=== PATIENT | male | born 1965 | race Caucasian/White ===

== ENCOUNTER 2019-10-15 05:58 | Inpatient (IN) | payer MEDICAID ==
[~2019-10-15] VITALS: Ht 172.7 cm; Wt 93.0 kg
--- NOTE | 2019-10-15 06:01 | NUR ---
[id number] FROM HOME C/O HEADACHE X1 WEEK +NAUSEA. PT TO BED 4, AWAKE, ALERT AAOX4, -SOB, NAD NOTED, -CP, VSS, PENDING ER PROVIDER TOAL
--- NOTE | 2019-10-15 06:21 | NUR ---
PER DR WALKER, PT DOES NOT NEED IV, CALLED LAB FOR BLOOD DRAW
--- NOTE | 2019-10-15 06:43 | NUR ---
PHLEB AT BEDSIDE
[2019-10-15 06:49] LABS: BASOPHILS # (AUTO) 0.1 /CMM (0.0-0.2); BASOPHILS % (AUTO) 0.6 % (0.0-2.0); EOSINOPHILS % (AUTO) 0.2 % (0.0-6.0); HEMATOCRIT 40 % (39-51); HEMOGLOBIN 13.1 g/dL (13.5-17.5); LYMPHOCYTES # (AUTO) 0.5 /CMM (0.8-4.8); LYMPHOCYTES % (AUTO) 2.6 % (20.0-44.0); MEAN CORPUSCULAR HGB CONC 33 g/dl (31.0-36.0); MEAN CORPUSCULAR VOLUME 91 fL (80-96); MONOCYTES # (AUTO) 0.7 /CMM (0.1-1.30); MONOCYTES % (AUTO) 3.3 % (2.0-12.0); NEUTROPHILS # (AUTO) 18.5 /CMM (1.8-8.9); NEUTROPHILS % (AUTO) 93.3 % (43.0-81.0); PLATELET COUNT (AUTO) 306 /CMM (150-450); RED BLOOD CELL COUNT(AUTO) 4.34 MIL/uL (4.5-6.0); WHITE BLOOD COUNT (AUTO) 19.9 K/uL (4.3-11.0)
[2019-10-15 07:12] LABS: ALANINE AMINOTRANSFERASE 19 U/L (12-78); ALBUMIN 2.6 g/dL (3.4-5.0); ALKALINE PHOSPHATASE 92 U/L (46-116); ASPARTATE AMINOTRANSFERASE 17 U/L (15-37); BILIRUBIN,DIRECT 0.1 mg/dL (0.0-0.2); BILIRUBIN,TOTAL 0.3 mg/dL (0.2-1.0); CALCIUM, SERUM 7.9 mg/dL (8.5-10.1); CARBON DIOXIDE 24 mmol/L (21-32); CHLORIDE 101 mmol/L (98-107); CREATININE 1.1 mg/dL (0.6-1.3); GLUCOSE 156 mg/dL (74-106); POTASSIUM 3.3 mmol/L (3.5-5.1); SODIUM SERUM 137 mmol/L (136-145); TOTAL PROTEIN, SERUM 6.4 g/dL (6.4-8.2); UREA NITROGEN, BLOOD 9 mg/dL (7-18)
--- NOTE | 2019-10-15 07:51 | NUR ---
ASSESSED PT ON BED AWAKE AND ALERT, NOT IN RESPIRATORY DISTRESS, V/S STABLE, KEPT RESTED AND COMFORTABLE. WILL CONTINUE TO MONITOR.
--- NOTE | 2019-10-15 07:52 | NUR ---
URINE SPECIMEN COLLECTED AND SENT TO LAB.
[2019-10-15] MEDS ORDERED: IV NS 0.9% 1,000 ML BAG IV ONE (08:00)
[2019-10-15] MEDS ORDERED: HYDROMORPHONE 1 MG/1 ML DISP.SYRIN IV ONE (08:00)
[2019-10-15] MEDS ORDERED: ONDANSETRON HCL/PF 4 MG/2 ML VIAL IVP ONE (08:00)
--- NOTE | 2019-10-15 08:01 | NUR ---
IV LINE ESTABLISHED BLOOD DRAWN AND SENT TO LAB.
[2019-10-15] MEDS ORDERED: HYDROMORPHONE 1 MG/1 ML DISP.SYRIN ONE (08:02)
[2019-10-15] MEDS ORDERED: ONDANSETRON HCL/PF 4 MG/2 ML VIAL ONE (08:02)
--- NOTE | 2019-10-15 08:09 | NUR ---
COVID SWAB OBTAINED AND SENT TO LAB.
[2019-10-15 08:14] LABS: APPEARANCE,URINE Clear (CLEAR); BILIRUBIN,URINE Negative (NEGATIVE); BLOOD, URINE Trace-lysed Ery/uL (NEGATIVE); COLOR,URINE Yellow (YELLOW); KETONES,URINE Negative (NEGATIVE); LEUKOCYTE ESTERASE ,URINE Negative (NEGATIVE); NITRITE, URINE Negative (NEGATIVE); PROTEIN,URINE Negative (NEGATIVE); UGLUCOSE Negative (NEGATIVE)
[2019-10-15 08:18] LABS: BACTERIA,URINE Rare /HPF (None Seen); RBC,URINE 0-2 /HPF (0-2); SQUAMOUS EPITHELIAL CELL,UR Rare /HPF (None Seen); WBC,URINE 0-2 /HPF (0-3)
--- NOTE | 2019-10-15 08:56 | NUR ---
NEGATIVE RAPID COVID TEST PER LAB
--- NOTE | 2019-10-15 09:11 | NUR ---
CALLED PHARMACY FOR IV ANTIBIOTIC.
[2019-10-15] MEDS ORDERED: ATOR40TA PO (09:16)
[2019-10-15] MEDS ORDERED: PANT40TA4 PO (09:16)
[2019-10-15] MEDS ORDERED: VANCOMYCIN 1 GM in IV D5W 250 ML IV ONE (09:30)
[2019-10-15] MEDS ORDERED: PIPERACILLIN /TAZOBACTAM 3.375 G in IV D5W 50 ML IV ONE (09:30)
[2019-10-15] MEDS ORDERED: VANCOMYCIN 1.5 GM in IV D5W 500ml IV ONE (09:30)
--- NOTE | 2019-10-15 09:41 | NUR ---
CALLED HOUSE SUP FOR BED. INFORMED THAT SHE IS WORKING ON IT. AWAITING HER RESPONSE
--- NOTE | 2019-10-15 09:43 | NUR ---
316 BED GIVEN. REPORT TO HARMONY
--- NOTE | 2019-10-15 09:47 | NUR ---
CALLED [facility] FOR REPORT RN NOT AVAILABLE.
--- NOTE | 2019-10-15 09:54 | NUR ---
REPORT GIVEN TO SHAHIDA ANTUNEZ FOR KEVON. WITH ONGOING IV ANTIBIOTIC TRANSFUSING WELL.
--- NOTE | 2019-10-15 10:45 | NUR ---
Patient admitted from ER accompanied by staff with sharron, vital sign stable. Pt c/o august seen by DR. Bradley, received report by Leroy/RN.
[2019-10-15] MEDS ORDERED: ONDANSETRON HCL/PF 4 MG/2 ML VIAL IVP PRN (11:30)
[2019-10-15] MEDS ORDERED: MAGNESIUM HYDROXIDE 30 ML UDC PO PRN (11:30)
[2019-10-15] MEDS ORDERED: ACETAMINOPHEN 325 MG TABLET PO PRN (11:30)
[2019-10-15] MEDS ORDERED: Z GUARD REMEDY 2 OZ OINT TP PRN (11:30)
[2019-10-15] MEDS ORDERED: MAG HYDROX/AL HYDROX/SIMETH 30 ML UDC PO PRN (11:30)
[2019-10-15] MEDS ORDERED: ZOLPIDEM TARTRATE 5 MG TABLET PO PRN (11:30)
[2019-10-15 12:00] VITALS: BP 130/55
[2019-10-15] MEDS: IV NS 0.9% 1,000 ML IV PRN (12:31)
[2019-10-15] MEDS: HYDROCODONE/APAP 5/325MG TABLET PO PRN ×2 (12:43→18:36)
[2019-10-15] MEDS: PIPERACILLIN /TAZOBACTAM 4.5 G in IV D5W 50 ML IV SCH ×2 (14:25→21:22)
[2019-10-15 16:00] VITALS: BP 109/61
--- NOTE | 2019-10-15 18:44 | NUR ---
RN Closing note Patient in bed, c/o headache and given Costa as prn order. Skin is warm to touch, keep clean/dry, patient VTE score is 1 and provided SCD pump on right lower extremity but left lower extremity due to cellulitis, intact IV site running IVF NS at 75 ml/hr. Respiratory even and unlabored on room air, O2sat 96%. Kept bed in locked with elevated HOB for ensure airway, call light within reach, will endorse overnight cashier.
--- NOTE | 2019-10-15 19:26 | NUR ---
MS RN OPENING NOTES PATIENT AWAKE IN BED. A/OX4. ON RA; NO S/S OF ACUTE RESPIRATORY DISTRESS; BREATHING IS EVEN AND UNLABORED. PATIENT C/O HEADACHE; PER DAY SHIFT RN, LIAT PANDA GIVEN AT 1835. IV PRESENT ON RIGHT AC, SIZE 18, INTACT & PATENT WITH NS RUNNING AT 75ML/HR. SAFETY MEASURES IN PLACE AND PATIENT'S NEEDS MET. BED LOCKED, SIDE RAILS X2, CALL LIGHT WITHIN REACH. WILL CONTINUE TO MONITOR.
[2019-10-15 20:00] VITALS: BP 111/56
[2019-10-15 20:32] VITALS: BP 111/56
[2019-10-15] MEDS: VANCOMYCIN 1.25 GM in IV D5W 250 ML IV SCH (22:44)
[2019-10-15] MEDS: ATORVASTATIN 40 MG TABLET PO SCH (22:44)
[2019-10-16] MEDS: PIPERACILLIN /TAZOBACTAM 4.5 G in IV D5W 50 ML IV SCH ×4 (03:21→20:48)
[2019-10-16 06:25] LABS: BASOPHILS % (AUTO) 0.2 % (0.0-2.0); EOSINOPHILS % (AUTO) 0.2 % (0.0-6.0); HEMATOCRIT 36 % (39-51); LYMPHOCYTES # (AUTO) 1.7 /CMM (0.8-4.8); LYMPHOCYTES % (AUTO) 9.4 % (20.0-44.0); MEAN CORPUSCULAR HGB CONC 33 g/dl (31.0-36.0); MEAN CORPUSCULAR VOLUME 91 fL (80-96); MONOCYTES # (AUTO) 1.2 /CMM (0.1-1.30); MONOCYTES % (AUTO) 6.7 % (2.0-12.0); NEUTROPHILS # (AUTO) 15.2 /CMM (1.8-8.9); NEUTROPHILS % (AUTO) 83.5 % (43.0-81.0); PLATELET COUNT (AUTO) 311 /CMM (150-450); WHITE BLOOD COUNT (AUTO) 18.2 K/uL (4.3-11.0)
[2019-10-16] MEDS: IV NS 0.9% 1,000 ML IV PRN ×2 (06:29→20:48)
[2019-10-16 06:42] LABS: CALCIUM, SERUM 7.8 mg/dL (8.5-10.1); CREATININE 1.1 mg/dL (0.6-1.3); MAGNESIUM 1.9 mg/dL (1.8-2.4); PHOSPHORUS 2.4 mg/dL (2.5-4.9); POTASSIUM 3.4 mmol/L (3.5-5.1)
[2019-10-16 06:57] LABS: THYROID STIMULATING HORMONE 0.987 uIU/mL (0.358-3.74)
--- NOTE | 2019-10-16 07:30 | NUR ---
RN Opening note Received patient in bed, AO x 4, able to responds all stimuli, patient denies headache or discomfort of left leg at this time. Respiratory even and unlabored on room air with oxygen at 3LPM, O2sat 95%, no distress observed. Skin is warm to touch, keep clean/dry, intact IV site. Kept bed in locked with elevated HOB for ensure airway and aspiration precaution, call light within reach, will continue to monitor.
--- NOTE | 2019-10-16 07:51 | NUR ---
MS RN CLOSING NOTES PATIENT SLEEPING, EASY TO AWAKEN. A/OX4. ON RA; NO S/S OF ACUTE RESPIRATORY DISTRESS; BREATHING IS EVEN AND UNLABORED. NO C/O PAIN. IV PRESENT ON RIGHT AC, SIZE 18, INTACT & PATENT WITH NS RUNNING AT 75ML/HR. SAFETY MEASURES IN PLACE AND PATIENT'S NEEDS MET. BED LOCKED, SIDE RAILS X2, CALL LIGHT WITHIN REACH. WILL ENDORSE TO DAY SHIFT RN PLAN OF CARE.
[2019-10-16] MEDS: PANTOPRAZOLE 40 MG TABLET.DR PO SCH (07:52)
[2019-10-16 08:39] VITALS: BP 97/52
[2019-10-16] MEDS: HYDROCODONE/APAP 5/325MG TABLET PO PRN ×2 (09:28→21:36)
[2019-10-16] MEDS ORDERED: POTASSIUM CHLORIDE 20 MEQ TAB.PRT.SR PO ONE (10:30)
--- NOTE | 2019-10-16 10:31 | NUR ---
WOUND CARE CONSULT: PT PRESENTS WITH REDNESS AND SWELLING TO LEFT LOWER LEG WITH SCAB AND SMALL AMOUNT OF PURULENT DRAINAGE FROM UNDER SCAB. RECOMMEND DPM CONSULT. DR KATZ NOTIFIED OF CONSULT REQUEST. IN AGREEMENT WITH PLAN OF CARE. Addendum: 10/16/19 at 1033 by CARLOS RAJPUT WNDNU Amended: Links added.
[2019-10-16] MEDS: VANCOMYCIN 1.25 GM in IV D5W 250 ML IV SCH ×2 (10:34→22:13)
[2019-10-16] MEDS ORDERED: NEUTRA PHOS 1 POWD.PACKET PO ONE (13:00)
[2019-10-16 16:28] VITALS: BP 105/63
--- NOTE | 2019-10-16 18:50 | NUR ---
RN Closing note Patient is in bed resting, no further c/o headache at this time. Respiratory even and unlabored, skin is warm to touch, kept clean/dry, continue to IV ATB and no s/s of complication observed. Kept bed in locked with elevated HOB ensure airway and aspiration precaution. Call light within reach, will endorse maintenance supervisor 2nd shift.
--- NOTE | 2019-10-16 19:34 | NUR ---
MS RN RECEIVE PT IN BED A/O X 4, STABLE AND NOT IN RESPIRATORY DISTRESS, SAFETY MEASURES AT ALL TIMES. WILL CONT TO MONITOR
[2019-10-16 20:00] VITALS: BP 114/65
[2019-10-16] MEDS: ATORVASTATIN 40 MG TABLET PO SCH (21:35)
[2019-10-17] MEDS: PIPERACILLIN /TAZOBACTAM 4.5 G in IV D5W 50 ML IV SCH ×3 (02:17→15:06)
--- NOTE | 2019-10-17 06:20 | NUR ---
MS RN PT, STABLE, MONITORED ACCORDINGLY, NO COMPLAIN OF PAIN AT THIS TIME. NO HEADACHE SLEPT WELL 7 HOURS, NEEDS ATTENDED AND ANTICIPATED, KEPT CLEAN, DRY AND COMFORTABLE AT ALL TIMES. NURSING CARE RENDERED, SAFETY MEASURES AT ALL TIMES. WILL ENDORSE TO NEXT SHIFT POC
--- NOTE | 2019-10-17 07:06 | NUR ---
MS RN OPENING NOTE RECEIVED PT AWAKE IN BED AT THIS TIME. AOX4, NO SOB NOTED, NO S/S OF ANY ACUTE DISTRESS NOTED. NO C/O PAIN AT THIS TIME. RESPIRATIONS ARE EVEN AND UNLABORED WITH EQUAL RISE AND FALL IN CHEST. IV ACCESS NOTED IN RAC G#18, PATENT, INTACT AND FLUSHING WELL. FALL AND SAFETY PRECAUTION IN PLACE AND MAINTAINED AT ALL TIMES. BED IN LOWEST LOCKED POSITION, HOB ELEVATED, RAILS UP X 2, CALL LIGHT WITHIN REACH. WILL CONTINUE TO MONITOR
[2019-10-17 07:09] LABS: BASOPHILS % (AUTO) 0.4 % (0.0-2.0); EOSINOPHILS % (AUTO) 1.9 % (0.0-6.0); HEMATOCRIT 38 % (39-51); HEMOGLOBIN 12.3 g/dL (13.5-17.5); LYMPHOCYTES # (AUTO) 1.4 /CMM (0.8-4.8); LYMPHOCYTES % (AUTO) 12.4 % (20.0-44.0); MEAN CORPUSCULAR HGB CONC 33 g/dl (31.0-36.0); MEAN CORPUSCULAR VOLUME 91 fL (80-96); MONOCYTES # (AUTO) 1.2 /CMM (0.1-1.30); MONOCYTES % (AUTO) 10.3 % (2.0-12.0); NEUTROPHILS # (AUTO) 8.6 /CMM (1.8-8.9); PLATELET COUNT (AUTO) 353 /CMM (150-450); WHITE BLOOD COUNT (AUTO) 11.5 K/uL (4.3-11.0)
[2019-10-17 07:32] LABS: CALCIUM, SERUM 8.4 mg/dL (8.5-10.1); CREATININE 1.2 mg/dL (0.6-1.3); MAGNESIUM 2.3 mg/dL (1.8-2.4); PHOSPHORUS 3.5 mg/dL (2.5-4.9); POTASSIUM 3.7 mmol/L (3.5-5.1)
[2019-10-17 08:00] VITALS: BP 98/48
[2019-10-17] MEDS: PANTOPRAZOLE 40 MG TABLET.DR PO SCH (08:30)
[2019-10-17] MEDS: VANCOMYCIN 1.25 GM in IV D5W 250 ML IV SCH (10:53)
--- NOTE | 2019-10-17 19:29 | NUR ---
MS COOK SPECIALTY NOTES PATIENT DISCHARGED HOME WITH AT THIS TIME. PT IN STABLE CONDITION. A/O X4. ALL CARE, TREATMENT, MEDICATIONS ADMINISTERED ANTICIPATED PER ORDER. PT DISCHARGE INSTRUCTIONS PROVIDED AND PT VERBALIZED UNDERSTANDING. PICTURES TAKEN AND FILED IN CHART. ALL BELONGINGS ACCOUNTED SIGNED BY PT AND FILED IN CHART. IV ACCESS REMOVED, PRESSURE APPLIED, SECURE WITH GAUZE AND TAPE. NO SIGN OF BLEEDING OR INFILTRATION NOTED. PT TRANSPORTED BY WHEELCHAIR TO [facility] BY [facility]. PT PICKED UP BY CAN. FRANK AND CHARGE NURSE AWARE OF DISCHARGE.
[2019-10-17] MEDS ORDERED: VANCOMYCIN 1 GM in IV D5W 250 ML IV SCH (22:00)
== END 2019-10-17 19:30 | disposition home or self-care (01) | DRG 383 ==
LOC: ER 06:44 → TELE 09:44 → MED 15:42
DX: L03.116 Cellulitis of left lower limb (principal); E78.5 Hyperlipidemia, unspecified; F17.210 Nicotine dependence, cigarettes, uncomplicated; R23.4 Changes in skin texture; S89.82XA Other specified injuries of left lower leg, initial encounter; Y93.66 Activity, soccer; Y92.89 Other specified places as the place of occurrence of the external cause; R51 Headache; R53.1 Weakness; R82.6 Abnormal urine levels of substances chiefly nonmedicinal as to source
CPT/HCPCS: 36415; 70450-TC; 71045-TC; 80048-TC; 80061-TC; 80076-TC; 80202-TC; 80305; 81000-TC; 83605-TC; 83735-TC; 84100-TC; 84443-TC; 84484-TC; 85025-TC; 87040-TC; 87081-TC; 93971-TC; C9803-CS; G0378; J1170; J2405; J2543; J3370; J7030; J7042; J7060

== ENCOUNTER 2020-10-30 10:07 | Emergency (ER) | payer MEDICAID, OTHER ==
[~2020-10-30] VITALS: Ht 172.7 cm; Wt 95.3 kg
[~2020-10-30 10:07] MED LIST: ATOR40TA PO; PANT40TA49 PO
[2020-10-30 10:20] VITALS: BP 137/95
--- NOTE | 2020-10-30 10:30 | NUR ---
SEEN AND EXAMINED BY .
[2020-10-30] MEDS ORDERED: SULF1TAB48 PO (10:37)
[2020-10-30] MEDS ORDERED: SULFAMETH/TRIMETH 800/160 MG 1 UDTAB TABLET ONE (10:40)
--- NOTE | 2020-10-30 10:47 | NUR ---
Patient discharged to home in stable condition. Written and verbal after care instructions given. Patient verbalizes understanding of instruction.
[2020-10-30] MEDS ORDERED: SULFAMETH/TRIMETH 800/160 MG 1 UDTAB TABLET PO ONE (11:00)
== END 2020-10-30 10:48 | disposition home or self-care (01) ==
LOC: ER 10:19
DX: L73.9 Follicular disorder, unspecified (principal); L03.115 Cellulitis of right lower limb; Z79.899 Other long term (current) drug therapy

== ENCOUNTER 2020-12-06 23:15 | Emergency (ER) | payer OTHER ==
[~2020-12-06] VITALS: Ht 172.7 cm; Wt 102.1 kg
[~2020-12-06 23:15] MED LIST changes: +SULF1TAB48 PO
--- NOTE | 2020-12-07 00:03 | NUR ---
BIBS FOR C/O BILATERAL FEET SWELLING AND REDNESS X 1 MONTH. PT CHANHED INTO A GOWN AND PLACED ON MONITOR VSS.
--- NOTE | 2020-12-07 01:06 | NUR ---
US AT BEDSIDE
[2020-12-07] MEDS ORDERED: CLIN300C12 PO (02:14)
[2020-12-07] MEDS ORDERED: FURO-145 PO (02:14)
--- NOTE | 2020-12-07 02:55 | NUR ---
Patient discharged to home in stable condition. Rx and Written and verbal after care instructions given. Patient verbalizes understanding of instruction.
[2020-12-07 02:56] VITALS: BP 122/74
== END 2020-12-07 02:56 | disposition home or self-care (01) ==
LOC: ER 23:17
DX: R60.0 Localized edema (principal); Z98.890 Other specified postprocedural states; Z60.2 Problems related to living alone; Z79.899 Other long term (current) drug therapy
CPT/HCPCS: 93971-TC

== ENCOUNTER 2021-05-27 21:15 | Emergency (ER) | payer OTHER ==
[~2021-05-27] VITALS: Ht 172.7 cm; Wt 104.3 kg
[~2021-05-27 21:15] MED LIST changes: +CLIN300C12 PO; +FURO-145 PO
--- NOTE | 2021-05-27 22:08 | NUR ---
TO ER BED 1. BIBS C/O R FLANK PAIN X YESTERDAY. PAIN IS NON RADIATING 08/20 ON P/S. DENIES ANY TRAUMA. NO PAINFUL URINATION. PT DID NOT TAKE ANYTHING TO RELIEVE PAIN. WORSE WITH MOVEMENT. DENIES ANY CHEST PAIN. AWAITING MD FRANK
[2021-05-27 22:18] LABS: BASOPHILS # (AUTO) 0.1 K/uL (0.0-0.2); BASOPHILS % (AUTO) 0.8 % (0.0-2.0); HEMATOCRIT 42 % (39-51); HEMOGLOBIN 13.8 g/dL (13.5-17.5); LYMPHOCYTES # (AUTO) 2.5 K/uL (0.8-4.8); LYMPHOCYTES % (AUTO) 27.7 % (20.0-44.0); MEAN CORPUSCULAR HGB CONC 33 g/dl (31.0-36.0); MEAN CORPUSCULAR VOLUME 89 fL (80-96); MONOCYTES # (AUTO) 0.8 K/uL (0.1-1.30); MONOCYTES % (AUTO) 9.1 % (2.0-12.0); NEUTROPHILS # (AUTO) 5.4 K/uL (1.8-8.9); NEUTROPHILS % (AUTO) 60.4 % (43.0-81.0); PLATELET COUNT (AUTO) 248 K/uL (150-450); RED BLOOD CELL COUNT(AUTO) 4.69 MIL/uL (4.5-6.0); WHITE BLOOD COUNT (AUTO) 8.9 K/uL (4.3-11.0)
[2021-05-27] MEDS ORDERED: KETOROLAC TROMETHAMINE INJ 30 MG/ML VIAL IV ONE (22:30)
[2021-05-27] MEDS ORDERED: IV NS 0.9% 1,000 ML BAG IV ONE (22:30)
[2021-05-27] MEDS ORDERED: ONDANSETRON HCL/PF 4 MG/2 ML VIAL IVP ONE (22:30)
[2021-05-27] MEDS ORDERED: ONDANSETRON HCL/PF 4 MG/2 ML VIAL ONE (22:30)
[2021-05-27] MEDS ORDERED: KETOROLAC TROMETHAMINE INJ 30 MG/ML VIAL ONE (22:30)
[2021-05-27 22:36] LABS: ALBUMIN 3.6 g/dL (3.4-5.0); BILIRUBIN,DIRECT 0.1 mg/dL (0.0-0.2); BILIRUBIN,TOTAL 0.3 mg/dL (0.2-1.0); CALCIUM, SERUM 8.5 mg/dL (8.5-10.1); CREATININE 1.2 mg/dL (0.6-1.3); POTASSIUM 3.7 mmol/L (3.5-5.1)
--- NOTE | 2021-05-27 22:46 | NUR ---
20G IV LINE ESTABLISHED RAC. PATENT AND INTACT.
--- NOTE | 2021-05-27 22:46 | NUR ---
PT BEING TRANSPORTED TO [facility]IA [facility]
[2021-05-27 22:47] LABS: BILIRUBIN,URINE NEGATIVE (NEGATIVE); COLOR,URINE YELLOW (YELLOW); LEUKOCYTE ESTERASE ,URINE NEGATIVE (NEGATIVE); NITRITE, URINE NEGATIVE (NEGATIVE); PROTEIN,URINE NEGATIVE (NEGATIVE); UGLUCOSE NEGATIVE (NEGATIVE); UROBILINOGEN,URINE 0.2 EU/dL (0.2)
[2021-05-27 23:16] LABS: BACTERIA,URINE None seen /HPF (None Seen); RBC,URINE 0-2 /HPF (0-2); SQUAMOUS EPITHELIAL CELL,UR Few /HPF (None Seen)
--- NOTE | 2021-05-28 00:31 | NUR ---
Patient discharged to home in stable condition. Written and verbal after care instructions given. Patient verbalizes understanding of instruction.
[2021-05-28 01:26] VITALS: BP 116/85
== END 2021-05-28 00:34 | disposition home or self-care (01) ==
LOC: ER 21:21
DX: T81.32XA Disruption of internal operation (surgical) wound, not elsewhere classified, initial encounter (principal); K46.9 Unspecified abdominal hernia without obstruction or gangrene; Z60.2 Problems related to living alone; Z79.899 Other long term (current) drug therapy
CPT/HCPCS: 36415; 74176; 80048; 80076; 81001; 83690; 85025; 96361; 96374; 96375; 99284; J1885; J2405; J7030